=== PATIENT | female | born 1975 | race Caucasian/White ===

== ENCOUNTER 2017-03-20 17:57 | Emergency (ER) | payer OTHER ==
[2017-03-20 18:11] VITALS: BMI 17.2
[2017-03-20] MEDS ORDERED: SODIUM CHLORIDE 1,000 ML IV STA ×2 (19:52→21:17)
--- NOTE | 2017-03-20 20:22 | PDOC ---
History of Present Illness - General Chief Complaint: Diarrhea Stated Complaint: FATIGUE Time Seen by Provider: 03/20/17 19:35 - History of Present Illness Initial Comments: 03/20/17 20:15 41 yo F with no significant pmh who presents with daihrrea. Pt. reports 2 days of watery stools x 4 yesterday and x 2 this AM. No evidence of blood per rectum. Pt. also complains of 1 week of stable unrelenting upper quadrant abdominal pain, described as crampy, dull pressure. Pain is non radiating and asx. with Nausea w/out vomiting. Increased bloating/flatulence with food. No change in diet. Also endorses 1 episode of transient lightheadness and diaphoresis yest. afternoon. Denies fevers/chills, chest pain, SOB, urinary complaints, hematuria, or irregular vaginal bleeding. Denies alcohol use, recent camping, traveling, or hiking. No OTC Lopeamide or antidiahrreal medication. No ORT. Past History - Past Medical History Allergies/Adverse Reactions: Allergies Allergy/AdvReac Type Severity Reaction Status Date / Time No Known Allergies Allergy Verified 03/20/17 18:02 Home Medications: Ambulatory Orders Naproxen [Naprosyn -] 500 mg PO BID #14 tablet 07/05/14 Anemia: Yes - Suicide/Smoking/Psychosocial Hx Smoking History: Never smoked Have you smoked in the past 12 months: No Information on smoking cessation initiated: No Hx Alcohol Use: No Drug/Substance Use Hx: No Substance Use Type: None Review of Systems - Review of Systems Comments:: 03/20/17 20:15 GENERAL/CONSTITUTIONAL: No fever or chills. No weakness. HEAD, EYES, EARS, NOSE AND THROAT: No change in vision. No ear pain or discharge. No sore throat.- CARDIOVASCULAR: No chest pain or shortness of breath RESPIRATORY: No cough, wheezing, or hemoptysis. GASTROINTESTINAL: + nausea and diarrhea. Without vomiting, or constipation. GENITOURINARY: No dysuria, frequency, or change in urination. MUSCULOSKELETAL: No joint or muscle swelling or pain. No neck or back pain. SKIN: No rash NEUROLOGIC: No headache, vertigo, loss of consciousness, or change in strength/ sensation. ENDOCRINE: No increased thirst. No abnormal weight change HEMATOLOGIC/LYMPHATIC: No anemia, easy bleeding, or history of blood clots. ALLERGIC/IMMUNOLOGIC: No hives or skin allergy. *Physical Exam - Vital Signs Last Vital Signs Temp Pulse Resp BP Pulse Ox 97.5 F L 60 14 90/57 100 03/20/17 18:03 03/20/17 18:03 03/20/17 18:03 03/20/17 18:03 03/20/17 18:03 - Physical Exam Comments: 03/20/17 20:16 GENERAL: Awake, alert, and fully oriented, in no acute distress HEAD: No signs of trauma, normocephalic, atraumatic EYES: PERRLA, EOMI, sclera anicteric, conjunctiva clear ENT: Auricles normal inspection, hearing grossly normal, nares patent, oropharynx clear without exudates. Moist mucosa NECK: Normal ROM, supple, no lymphadenopathy, JVD, or masses LUNGS: No distress, speaks full sentences, clear to auscultation bilaterally HEART: Regular rate and rhythm, normal S1 and S2, no murmurs, rubs or gallops, peripheral pulses normal and equal bilaterally. ABDOMEN:Pain not out of proportion to exam. Soft,mildly ttp in RUQ Neg garcia sign or mcuburney point tenderness. Pain not out of proportion to exam, normoactive bowel sounds. No guarding, no rigidity, no rebound. No masses. Neg CVA ttp. Neg suprapubic ttp. EXTREMITIES : Normal inspection, Normal range of motion, no edema. No clubbing or cyanosis. SKIN: Warm, Dry, normal turgor, no rashes or lesions noted. ED Treatment Course - LABORATORY CBC & Chemistry Diagram: 03/20/17 20:20 03/20/17 20:20 Medical Decision Making - Medical Decision Making 03/20/17 21:35 41 yo F with no significant pmh who presents with 2 days of diarrhea and crampy /sharp upper quadrant abdominal pain, Associated with nausea w/out vomiting and increased bloating/flatulence with food. No other complaints. Physical exam was noteable for hypertension and RUQ ttp. DDx: Viral/infectious diahrrea, cholelithiasis, pancreatitis, GERD/Dyspepsia, dehydration ED Course: CBC, CMP, UA, Serum Preg, Lipase RUQ U/S 03/20/17 21:38 NS 2 L 03/20/17 21:39 CBC, CMP: Unremarkable 03/20/17 21:39 UA: Trace Ketones, with 3 + blood. Patient is menstruating. *DC/Admit/Observation/Transfer Diagnosis at time of Disposition: Diarrhea Qualifiers: Diarrhea type: unspecified type Qualified Code(s): R19.7 - Diarrhea, unspecified; R19.7 - Diarrhea, unspecified - Discharge Dispostion Disposition: HOME Condition at time of disposition: Stable Admit: No - Patient Instructions Printed Discharge Instructions: Diarrhea (Alternative Therapy) Additional Instructions: Please return to ED if you have persistent diarrhea for over 1 week, worsening abdominal pain, fevers/chills, blood in stool, or worsening symptoms. Avoid caffeine intake, citrus fruits, and juice. Continue to stay orally hydrated. - Attestations Physician Attestion: 03/20/17 23:35 I attest to the information provided in this note.
[2017-03-20 20:26] VITALS: BP 101/73
[2017-03-20 20:28] LABS: BASOPHIL 0.4 % (0-2.0); EOSINOPHIL 0.2 % (0-4.5); MCH 23.3 pg (25.7-33.7); MCHC 31.3 g/dl (32.0-36.0); MEAN CELL VOLUME 74.4 fl (80-96); MEAN PLT VOLUME 8.2 fl (7.5-11.1); NEUTROPHILS 77.7 % (42.8-82.8); PLATELET COUNT 439 K/MM3 (134-434); RDW 17.4 % (11.6-15.6); WHITE BLOOD COUNT 5.7 K/mm3 (4.0-10.0)
[2017-03-20 20:30] LABS: URINE APPEARANCE CLOUDY; URINE BILIRUBIN NEGATIVE (NEGATIVE); URINE BLOOD 3+ (NEGATIVE); URINE COLOR YELLOW; URINE GLUCOSE (UA) NEGATIVE (NEGATIVE); URINE KETONE TRACE (NEGATIVE); URINE NITRITE NEGATIVE (NEGATIVE); URINE PROTEIN 1+ (NEGATIVE); URINE UROBILINOGEN NEGATIVE mg/dL (0.2-1.0)
[2017-03-20 20:36] LABS: URINE MUCUS MANY; URINE RBC 992 /hpf (0-3); URINE WBC 32 /hpf (3-5)
[2017-03-20 20:55] LABS: ALBUMIN 4.2 g/dl (3.4-5.0); ANION GAP 7 (8-16); CALCIUM 9.1 mg/dL (8.5-10.1); CO2 25 mmol/L (21-32); CREATININE 0.5 mg/dL (0.55-1.02); GLUCOSE,RANDOM 89 mg/dL (74-106); SGOT/AST 32 U/L (15-37)
[2017-03-20 21:00] VITALS: PULSE 82; TEMP 98.2
[2017-03-20 21:04] LABS: ALK PHOS 68 U/L (45-117); BILIRUBIN,TOTAL 0.2 mg/dL (0.2-1.0); SGPT/ALT 31 U/L (12-78); TOT PROT 8.1 g/dl (6.4-8.2)
[2017-03-20 23:16] LABS: URINE LEUK ESTERASE Negative (NEGATIVE)
--- NOTE | 2017-03-20 23:51 | PDOC ---
Attending Attestation - Resident Resident Name: Rafael Campos - HPI HPI: 03/21/17 03:02 Pt comes with generalized abd pain and bloating and a feeling of pain whenever she eats. She is thin and she is anemic. - Physicial Exam PE: 03/21/17 03:03 Agree with resident exam. Afebrile; NT ND abd; no flank pain. - Medical Decision Making 03/21/17 03:04 Labs are normal, except for her anemia, which pt states is old. Pt's US is normal. Pt will be referred to GI sepcialist who can check her for H Pylorii; also pt has been sggested to use probiotocs in the mean time and to eat iron rich foods. Home with PMD and GI follow up.
== END 2017-03-21 00:44 | disposition home or self-care (01) ==
LOC: JER 17:57
PROC: 3E0337Z Introduction of Electrolytic and Water Balance Substance into Peripheral Vein, Percutaneous Approach (ICD-10-PCS; principal; 2017-03-20)
DX: R10.10 Upper abdominal pain, unspecified (principal)
CPT/HCPCS: 36415; 76705-TC; 80053; 81003; 81015; 83690; 84703; 85025; 96360; 96361; 99283-25

== ENCOUNTER 2020-06-02 16:15 | Emergency (ER) | payer OTHER ==
[2020-06-02 16:24] VITALS: BP 122/59; PULSE 103; TEMP 99.2; BMI 18.8
[2020-06-02] MEDS ORDERED: ACETAMINOPHEN 500 MG TABLET (FP) ONE (16:39)
[2020-06-02 16:40] LABS: HCG,QUALITATIVE URINE Negative
[2020-06-02] MEDS ORDERED: ACETAMINOPHEN 500 MG TABLET (FP) PO ONE ×2 (16:40→16:46)
[2020-06-02 16:52] LABS: EPITHELIAL CELLS FEW /hpf
[2020-06-02 16:59] LABS: BASO % 1.1 % (0-2.0); EOS % 0.3 % (0-4.5); HEMATOCRIT 31.2 % (32.4-45.2); LYMPH % 17.4 % (8-40); MCH 30.4 pg (25.7-33.7); MCHC 31.9 g/dl (32.0-36.0); MEAN CELL VOLUME 95.2 fl (80-96); MEAN PLT VOLUME 7.8 fl (7.5-11.1); MONO % 12.2 % (3.8-10.2); PLATELET COUNT 337 K/MM3 (134-434); RBC 3.28 M/mm3 (3.60-5.2); WHITE BLOOD COUNT 6.6 K/mm3 (4.0-10.8)
[2020-06-02 17:18] LABS: ALBUMIN 3.7 g/dl (3.4-5.0); BILIRUBIN,TOTAL 0.3 mg/dl (0.2-1); CALCIUM 8.3 mg/dl (8.5-10); CREATININE 0.6 mg/dl (0.55-1.3); TOT PROT 6.8 g/dl (6.4-8.2)
== END 2020-06-02 17:45 | disposition home or self-care (01) ==
LOC: FER 16:15
DX: N10 Acute pyelonephritis (principal)
CPT/HCPCS: 36415; 80053; 81003; 81015; 84703; 85025; 87086; 87186; 99283-25

== ENCOUNTER 2022-11-04 09:18 | Day surgery (SDC) | payer OTHER ==
[2022-11-04] MEDS ORDERED: FERRIC CARBOXYMALTOSE 750 MG in SODIUM CHLORIDE 250 ML IVPB ONE (10:00)
[2022-11-04 16:28] VITALS: BP 106/72; PULSE 85; RESP 82; TEMP 97.8
== END 2022-11-04 10:55 | disposition home or self-care (01) ==
LOC: JONCNONCHE 09:18 → J7W 09:19 → JONCNONCHE 10:55
PROVIDERS: ATTEND Internal Medicine Hematology & Oncology
PROC: 3E033GC Introduction of Other Therapeutic Substance into Peripheral Vein, Percutaneous Approach (ICD-10-PCS; principal; 2022-11-04)
DX: D50.9 Iron deficiency anemia, unspecified (principal)
CPT/HCPCS: 96365; J1439

== ENCOUNTER 2022-11-11 09:42 | Day surgery (SDC) | payer OTHER ==
[2022-11-11] MEDS ORDERED: FERRIC CARBOXYMALTOSE 750 MG in SODIUM CHLORIDE 250 ML IVPB ONE (10:00)
[2022-11-11 15:57] VITALS: BP 102/69; PULSE 79; RESP 18; TEMP 97.5
== END 2022-11-11 10:40 | disposition home or self-care (01) ==
LOC: JONCNONCHE 09:42 → J7W 09:45 → JONCNONCHE 10:40
PROVIDERS: ATTEND Internal Medicine Hematology & Oncology
PROC: 3E033GC Introduction of Other Therapeutic Substance into Peripheral Vein, Percutaneous Approach (ICD-10-PCS; principal; 2022-11-11)
DX: D50.9 Iron deficiency anemia, unspecified (principal)
CPT/HCPCS: 96365; J1439